=== PATIENT | male | born 1965 | race Hispanic/Latino ===

== ENCOUNTER 2017-11-11 06:11 | Emergency (ER) | payer SELFPAY ==
[2017-11-11 06:26] VITALS: TEMP 97.9; O2SAT 98
--- NOTE | 2017-11-11 07:31 | C.PDOC ---
History Of Present Illness 52 y/o male presents to ED with c/o cough and congestion worse at night for 3 weeks. Patient has been taking left over amoxicillin with no improvement and currently denies fever, chills, chest pain, nausea, vomiting or any other complaints at this time. Time Seen by Provider: 11/11/17 07:05 Chief Complaint (Nursing): Cough, Cold, Congestion History Per: Patient History/Exam Limitations: no limitations Onset/Duration Of Symptoms: Days Current Symptoms Are (Timing): Still Present Associated Symptoms: Cough, Nasal Congestion Past Medical History Reviewed: Historical Data, Nursing Documentation, Vital Signs Vital Signs: Last Vital Signs Temp 97.9 F 11/11/17 06:21 Pulse 82 11/11/17 06:21 Resp 20 11/11/17 06:21 BP 152/90 H 11/11/17 06:21 Pulse Ox 98 11/11/17 07:33 - Medical History PMH: No Chronic Diseases Surgical History: No Surg Hx Family History: States: No Known Family Hx - Social History Hx Alcohol Use: No Hx Substance Use: No - Immunization History Hx Tetanus Toxoid Vaccination: No Hx Influenza Vaccination: No Hx Pneumococcal Vaccination: No Review Of Systems Except As Marked, All Systems Reviewed And Found Negative. ENT: Positive for: Nose Congestion Respiratory: Positive for: Cough Physical Exam - Physical Exam Appears: Non-toxic, No Acute Distress Skin: Warm, Dry, No Rash Head: Atraumatic, Normacephalic Eye(s): bilateral: Normal Inspection Ear(s): Bilateral: Normal Oral Mucosa: Moist Throat: Normal, No Erythema, No Exudate Neck: Supple Cardiovascular: Rhythm Regular Respiratory: Normal Breath Sounds, No Rales, No Rhonchi, No Wheezing Gastrointestinal/Abdominal: Soft, No Tenderness, No Guarding, No Rebound Neurological/Psych: Oriented x3, Normal Speech, Normal Cognition ED Course And Treatment O2 Sat by Pulse Oximetry: 98 (RA) Pulse Ox Interpretation: Normal Medical Decision Making Medical Decision Making: Assessment: Bronchitis Plan: Patient discharged and follow up with clinic in 1-2 days. Disposition - Disposition Referrals: [facility] [Outside] Disposition: HOME/ ROUTINE Disposition Time: 07:27 Condition: STABLE Additional Instructions: follow up with medical clinic within 2 days call to make an appointment take medications as prescribed return to ER if symptoms worsens or progress Prescriptions: Azithromycin [Zithromax] 250 mg PO DAILY #4 tab Hydrocodone/Chlorpheniramine [Tussionex] 5 ml PO QPM #80 ml Instructions: Acute Bronchitis Forms: General Discharge Instructions, [facility] ([place]), Work Excuse - Clinical Impression Clinical Impression: Bronchitis - Scribe Statement The provider has reviewed the documentation as recorded by the Simoneibhelen [place] All medical record entries made by the Simoneibhelen were at my direction and personally dictated by me. I have reviewed the chart and agree that the record accurately reflects my personal performance of the history, physical exam, medical decision making, and the department course for this patient. I have also personally directed, reviewed, and agree with the discharge instructions and disposition.
[2017-11-11 08:25] VITALS: BP 121/78; PULSE 78; RESP 16
== END 2017-11-11 08:24 | disposition home or self-care (01) ==
LOC: C.ER 06:11
DX: J40 Bronchitis, not specified as acute or chronic (principal)